=== PATIENT | male | born 1950 | race Caucasian/White ===

== ENCOUNTER 2021-01-14 13:28 | Inpatient (IN) ==
[2021-01-14 13:59] LABS: Basophils % 0.2 % (0.0-0.8); Eosinophils % 0.3 % (0.00-10.9); Hematocrit 24.2 VOL% (42.0-52.0); Hemoglobin 7.2 GM/DL (14.0-18.0); Immature Granulocytes % 0.6 %; Immature Granulocytes Absolute 0.06 #; Lymphocytes # 0.8 10*3/uL (1.4-4.0); Lymphocytes % 8.3 % (21.2-54.2); Mean Corpuscular HGB Conc 29.8 GM/DL (32-36); Mean Corpuscular Volume 88.6 FL (87-102); Mean Platelet Volume 8.8 FL (9.6-12.0); Monocytes % 7.6 % (1.7-12.7); Platelet Count 407 T/CUMM (130-400); Red Blood Count 2.73 MC/CUMM (3.8-5.5); Red Cell Distribution Width 16.7 % (9.3-17.3); White Blood Count 9.8 T/CUMM (4-12)
[2021-01-14 14:20] LABS: Alanine Aminotransferase 18 U/L (16-61); Albumin 2.2 G/DL (3.4-5.0); Alkaline Phosphatase 95 U/L (45-117); Aspartate Amino Transferase 10 U/L (0-37); Bilirubin,Total < 0.39 MG/DL (0.2-1.0); Blood Urea Nitrogen 27 MG/DL (7-18); Carbon Dioxide 26 MMOL/L (21-32); Estimated Glom Filtration Rate 87 ML/MIN; Glucose 134 MG/DL (74-106); Osmolality,Calculated 279.8 MOS/KG (273-304); Potassium 3.9 MMOL/L (3.5-5.1); Sodium 137 MMOL/L (136-145); Total Protein 7.2 G/DL (6.4-8.2)
[2021-01-14] MEDS ORDERED: SODIUM CHLORIDE 0.9% 1,000 ML IV STA (14:23)
[2021-01-14] MEDS ORDERED: SODIUM CHLORIDE 0.9% 1,000 ML IV PRN ×2 (15:14→15:35)
[2021-01-14 15:23] LABS: Alanine Aminotransferase 15 U/L (16-61); Albumin 2.2 G/DL (3.4-5.0); Alkaline Phosphatase 99 U/L (45-117); Aspartate Amino Transferase 11 U/L (0-37); Bilirubin,Total < 0.39 MG/DL (0.2-1.0); Blood Urea Nitrogen 27 MG/DL (7-18); Calcium 9.1 MG/DL (8.5-10.1); Carbon Dioxide 24 MMOL/L (21-32); Estimated Glom Filtration Rate 99 ML/MIN; Glucose 130 MG/DL (74-106); Osmolality,Calculated 276.1 MOS/KG (273-304); Potassium 3.9 MMOL/L (3.5-5.1); Sodium 135 MMOL/L (136-145); Total Protein 7.4 G/DL (6.4-8.2)
[2021-01-14] MEDS ORDERED: ACETAMINOPHEN 325 MG TABLET PO PRN (15:29)
[2021-01-14] MEDS ORDERED: DEXTROSE 50% 25 GM/50 ML VIAL IV PRN ×2 (15:29)
[2021-01-14] MEDS ORDERED: GLUCAGON 1 MG VIAL IM PRN ×2 (15:29)
[2021-01-14] MEDS ORDERED: INSULIN REGULAR 100 UNIT/ML SUBCUT SCH (16:30)
[2021-01-14] MEDS: oxyCODONE/ACETAMINOPHEN 5-325 MG TABLET PO PRN (19:53)
[2021-01-14] MEDS: FLUTICASONE/SALMETEROL 250-50 DISKUS 14 DOSE INH SCH (21:07)
[2021-01-14] MEDS: SIMVASTATIN 40 MG TABLET PO SCH (21:07)
[2021-01-14] MEDS: MONTELUKAST 10 MG TABLET PO SCH (21:07)
[2021-01-15] MEDS: oxyCODONE/ACETAMINOPHEN 5-325 MG TABLET PO PRN (04:14)
[2021-01-15 05:53] LABS: Basophils % 0.3 % (0.0-0.8); Eosinophils # 0.1 10*3/uL (0.0-0.87); Eosinophils % 1.3 % (0.00-10.9); Hematocrit 23.7 VOL% (42.0-52.0); Hemoglobin 7.3 GM/DL (14.0-18.0); Immature Granulocytes % 0.4 %; Immature Granulocytes Absolute 0.03 #; Lymphocytes % 12.2 % (21.2-54.2); Mean Corpuscular HGB Conc 30.8 GM/DL (32-36); Mean Corpuscular Volume 87.1 FL (87-102); Mean Platelet Volume 9.2 FL (9.6-12.0); Monocytes % 10.8 % (1.7-12.7); Platelet Count 320 T/CUMM (130-400); Red Blood Count 2.72 MC/CUMM (3.8-5.5); Red Cell Distribution Width 17.7 % (9.3-17.3)
[2021-01-15 06:17] LABS: Albumin 1.7 G/DL (3.4-5.0); Bilirubin,Total 0.8 MG/DL (0.2-1.0); Calcium 8.5 MG/DL (8.5-10.1); Osmolality,Calculated 277.7 MOS/KG (273-304); Potassium 4.1 MMOL/L (3.5-5.1); Total Protein 5.9 G/DL (6.4-8.2)
[2021-01-15] MEDS ORDERED: SODIUM CHLORIDE 0.9% 1,000 ML IV PRN (08:23)
[2021-01-15] MEDS ORDERED: NON-FORMULARY MEDICATION (Turmeric 400 mg Capsule) PO SCH (09:00)
[2021-01-15 09:49] LABS: INR 1.2; Partial Thromboplastin Time 27.3 SECS (23.9-33.8)
[2021-01-15] MEDS: GABAPENTIN 100 MG CAPSULE PO SCH (12:08)
[2021-01-15] MEDS: COENZYME Q10 100 MG CAPSULE PO SCH (12:08)
[2021-01-15] MEDS: ASCORBIC ACID 500 MG TABLET PO SCH (12:09)
[2021-01-15] MEDS: FLUTICASONE/SALMETEROL 250-50 DISKUS 14 DOSE INH SCH ×2 (12:24→22:03)
[2021-01-15] MEDS: HYDROmorphone 2 MG/1 ML VIAL IV PRN ×3 (15:11→23:34)
[2021-01-15 15:23] LABS: Hematocrit 26.6 VOL% (42.0-52.0); Hemoglobin 8.1 GM/DL (14.0-18.0)
[2021-01-15] MEDS ORDERED: VANCOMYCIN INJ 1,750 MG in SODIUM CHLORIDE 0.9% 500 ML IV ONE (16:00)
[2021-01-15] MEDS ORDERED: VANCOMYCIN INJ 2,000 MG in SODIUM CHLORIDE 0.9% 500 ML IV ONE (17:00)
[2021-01-15 19:43] LABS: Hematocrit 24.8 VOL% (42.0-52.0); Hemoglobin 7.8 GM/DL (14.0-18.0)
[2021-01-15 19:48] LABS: Bilirubin,Urine Negative (Negative); Blood, Urine Moderate mg/dL (Negative); Glucose,Urine (UA) Negative (Negative); Ketones,Urine Negative (Negative); Mucus,Urine Occasional /LPF (Occasional); Nitrite,Urine Negative (Negative); Protein,Urine Negative; RBC,Urine 53 /HPF (0-4); Squamous Epithelial Cell,Urine Occasional /HPF (0-10); Urine Appearance CLEAR (Clear); Urine Color Yellow (Yellow); Urine Specific Gravity 1.045 (1.001-1.035); Urine Urobilinogen < 2.0 EU/DL (0.2-1.0); WBC,Urine 16 /HPF (0-6)
[2021-01-15] MEDS: PIPERACILLIN/TAZOBACTAM 3,375 MG in SODIUM CHLORIDE 0.9% 100 ML IV SCH (22:01)
[2021-01-15] MEDS: SIMVASTATIN 40 MG TABLET PO SCH (22:02)
[2021-01-15] MEDS: MONTELUKAST 10 MG TABLET PO SCH (22:02)
[2021-01-15 23:29] LABS: Hematocrit 24.1 VOL% (42.0-52.0); Hemoglobin 7.6 GM/DL (14.0-18.0)
[2021-01-16] MEDS: HYDROmorphone 2 MG/1 ML VIAL IV PRN ×4 (04:05→11:05)
[2021-01-16] MEDS: PIPERACILLIN/TAZOBACTAM 3,375 MG in SODIUM CHLORIDE 0.9% 100 ML IV SCH ×2 (05:56→19:15)
[2021-01-16] MEDS: VANCOMYCIN INJ 1,250 MG in SODIUM CHLORIDE 0.9% 250 ML IV SCH ×2 (06:17→17:58)
[2021-01-16 06:58] LABS: Basophils % 0.2 % (0.0-0.8); Eosinophils % 0.5 % (0.00-10.9); Hematocrit 26.7 VOL% (42.0-52.0); Hemoglobin 8.5 GM/DL (14.0-18.0); Immature Granulocytes % 0.5 %; Immature Granulocytes Absolute 0.04 #; Lymphocytes % 12.1 % (21.2-54.2); Mean Corpuscular HGB Conc 31.8 GM/DL (32-36); Mean Corpuscular Volume 86.1 FL (87-102); Mean Platelet Volume 8.9 FL (9.6-12.0); Monocytes % 12.3 % (1.7-12.7); Neutrophils % 74.4 % (38.7-73.9); Platelet Count 316 T/CUMM (130-400); Red Cell Distribution Width 16.2 % (9.3-17.3); White Blood Count 8.3 T/CUMM (4-12)
[2021-01-16 07:20] LABS: Calcium 8.6 MG/DL (8.5-10.1); Potassium 3.8 MMOL/L (3.5-5.1)
[2021-01-16] MEDS ORDERED: LACTATED RINGERS 1,000 ML IV SCH (08:00)
[2021-01-16] MEDS ORDERED: MIDAZOLAM 2 MG/2 ML VIAL ONE (08:31)
[2021-01-16] MEDS ORDERED: ONDANSETRON 4 MG/2 ML VIAL ONE ×2 (08:31→10:54)
[2021-01-16] MEDS ORDERED: propofoL 200 MG/20 ML VIAL IV ONE (08:31)
[2021-01-16] MEDS ORDERED: fentaNYL 100 MCG/2 ML VIAL ONE (08:31)
[2021-01-16] MEDS ORDERED: LIDOCAINE 2% 5 ML VIAL ONE (08:31)
[2021-01-16] MEDS ORDERED: SEVOFLURANE 1 UNIT/15 MINUTE INH ONE ×3 (08:31→10:03)
[2021-01-16] MEDS ORDERED: BUPIVACAINE MPF 0.25% 30 ML VIAL ONE (08:40)
[2021-01-16] MEDS ORDERED: LIDOCAINE 1%/EPI INJ 20 ML VIAL ONE (08:40)
[2021-01-16] MEDS ORDERED: DEXAMETHASONE 4 MG/1 ML VIAL ONE (10:03)
[2021-01-16] MEDS ORDERED: ONDANSETRON 4 MG/2 ML VIAL IV PRN (10:56)
[2021-01-16] MEDS: FLUTICASONE/SALMETEROL 250-50 DISKUS 14 DOSE INH SCH ×2 (14:02→21:04)
[2021-01-16] MEDS: COENZYME Q10 100 MG CAPSULE PO SCH (14:03)
[2021-01-16] MEDS: ASCORBIC ACID 500 MG TABLET PO SCH (14:04)
[2021-01-16] MEDS: GABAPENTIN 100 MG CAPSULE PO SCH (14:04)
[2021-01-16] MEDS: oxyCODONE/ACETAMINOPHEN 5-325 MG TABLET PO PRN ×2 (14:05→20:58)
[2021-01-16] MEDS: MONTELUKAST 10 MG TABLET PO SCH (20:58)
[2021-01-16] MEDS: SIMVASTATIN 40 MG TABLET PO SCH (20:58)
[2021-01-17] MEDS: PIPERACILLIN/TAZOBACTAM 3,375 MG in SODIUM CHLORIDE 0.9% 100 ML IV SCH ×3 (02:01→19:32)
[2021-01-17] MEDS: oxyCODONE/ACETAMINOPHEN 5-325 MG TABLET PO PRN ×4 (04:06→23:25)
[2021-01-17] MEDS: VANCOMYCIN INJ 1,250 MG in SODIUM CHLORIDE 0.9% 250 ML IV SCH ×2 (06:07→17:20)
[2021-01-17] MEDS: COENZYME Q10 100 MG CAPSULE PO SCH ×2 (09:18→09:55)
[2021-01-17] MEDS: ASCORBIC ACID 500 MG TABLET PO SCH (09:55)
[2021-01-17] MEDS: GABAPENTIN 100 MG CAPSULE PO SCH (09:55)
[2021-01-17] MEDS: FLUTICASONE/SALMETEROL 250-50 DISKUS 14 DOSE INH SCH ×2 (09:56→22:20)
[2021-01-17] MEDS: SODIUM HYPOCHLORITE 0.25% IRRIG 473 ML BOTTLE TOP SCH (17:30)
[2021-01-17] MEDS ORDERED: LOPERAMIDE 2 MG CAPSULE PO PRN ×2 (21:43)
[2021-01-17] MEDS ORDERED: MYLANTA/LIDO VISC 2:1 300 ML BOTTLE SWISH/SWAL PRN (21:43)
[2021-01-17] MEDS ORDERED: MYLANTA/LIDO VISC 2:1 300 ML BOTTLE SWISH/SPIT PRN (21:43)
[2021-01-17] MEDS ORDERED: guaiFENesin 200 MG/10 ML UDCUP PO PRN (21:43)
[2021-01-17] MEDS ORDERED: TEMAZEPAM 7.5 MG CAPSULE PO PRN (21:43)
[2021-01-17] MEDS ORDERED: LACTULOSE 20 GM/30 ML UDCUP PO PRN (21:43)
[2021-01-17] MEDS ORDERED: chlorproMAZINE 25 MG TABLET PO PRN (21:43)
[2021-01-17] MEDS ORDERED: ALUMINUM/MAGNES/SIMETH MAX STR 30 ML UDCUP PO PRN (21:43)
[2021-01-17] MEDS ORDERED: MAGNESIUM HYDROXIDE SUSP 30 ML UDCUP PO PRN (21:43)
[2021-01-17] MEDS ORDERED: BENZTROPINE 2 MG/2 ML AMP IV PRN (21:43)
[2021-01-17] MEDS: SIMVASTATIN 40 MG TABLET PO SCH (22:13)
[2021-01-17] MEDS: MONTELUKAST 10 MG TABLET PO SCH (22:13)
[2021-01-17] MEDS: ALPRAZolam 0.25 MG TABLET PO PRN (22:15)
[2021-01-18] MEDS: PIPERACILLIN/TAZOBACTAM 3,375 MG in SODIUM CHLORIDE 0.9% 100 ML IV SCH ×3 (02:17→19:45)
[2021-01-18] MEDS: oxyCODONE/ACETAMINOPHEN 5-325 MG TABLET PO PRN ×4 (04:00→23:33)
[2021-01-18 05:21] LABS: Basophils % 0.2 % (0.0-0.8); Eosinophils # 0.1 10*3/uL (0.0-0.87); Eosinophils % 0.9 % (0.00-10.9); Hematocrit 28.1 VOL% (42.0-52.0); Hemoglobin 8.5 GM/DL (14.0-18.0); Immature Granulocytes Absolute 0.08 #; Lymphocytes % 12.2 % (21.2-54.2); Mean Corpuscular HGB Conc 30.2 GM/DL (32-36); Mean Corpuscular Volume 88.4 FL (87-102); Mean Platelet Volume 9.1 FL (9.6-12.0); Monocytes % 7.2 % (1.7-12.7); Neutrophils % 78.5 % (38.7-73.9); Platelet Count 345 T/CUMM (130-400); Red Blood Count 3.18 MC/CUMM (3.8-5.5); Red Cell Distribution Width 16.5 % (9.3-17.3); White Blood Count 8.2 T/CUMM (4-12)
[2021-01-18 05:33] LABS: Calcium 8.5 MG/DL (8.5-10.1); Osmolality,Calculated 279.4 MOS/KG (273-304); Potassium 3.8 MMOL/L (3.5-5.1)
[2021-01-18] MEDS: VANCOMYCIN INJ 1,000 MG in SODIUM CHLORIDE 0.9% 250 ML IV SCH ×2 (06:17→17:55)
[2021-01-18] MEDS: HYDROmorphone 2 MG/1 ML VIAL IV PRN ×2 (07:18→19:35)
[2021-01-18] MEDS: GABAPENTIN 100 MG CAPSULE PO SCH (08:51)
[2021-01-18] MEDS: SODIUM HYPOCHLORITE 0.25% IRRIG 473 ML BOTTLE TOP SCH (08:52)
[2021-01-18] MEDS: ALPRAZolam 0.25 MG TABLET PO PRN (08:52)
[2021-01-18] MEDS: FLUTICASONE/SALMETEROL 250-50 DISKUS 14 DOSE INH SCH ×2 (08:52→20:25)
[2021-01-18] MEDS: COENZYME Q10 100 MG CAPSULE PO SCH (08:52)
[2021-01-18] MEDS: ASCORBIC ACID 500 MG TABLET PO SCH (08:52)
[2021-01-18 10:57] LABS: Basophils % 0.2 % (0.0-0.8); Eosinophils # 0.1 10*3/uL (0.0-0.87); Eosinophils % 1.5 % (0.00-10.9); Hematocrit 28.4 VOL% (42.0-52.0); Hemoglobin 8.7 GM/DL (14.0-18.0); Immature Granulocytes % 0.7 %; Immature Granulocytes Absolute 0.06 #; Lymphocytes % 12.5 % (21.2-54.2); Mean Corpuscular HGB Conc 30.6 GM/DL (32-36); Mean Corpuscular Volume 90.2 FL (87-102); Mean Platelet Volume 8.7 FL (9.6-12.0); Monocytes % 6.7 % (1.7-12.7); Neutrophils % 78.4 % (38.7-73.9); Platelet Count 324 T/CUMM (130-400); Red Blood Count 3.15 MC/CUMM (3.8-5.5); Red Cell Distribution Width 16.8 % (9.3-17.3); White Blood Count 8.2 T/CUMM (4-12)
[2021-01-18] MEDS ORDERED: ACETAMINOPHEN 325 MG TABLET PO ONE (15:21)
[2021-01-18 16:01] LABS: Hematocrit 28.3 VOL% (42.0-52.0); Hemoglobin 8.8 GM/DL (14.0-18.0)
[2021-01-18 16:25] LABS: Calcium 8.5 MG/DL (8.5-10.1); Osmolality,Calculated 277.5 MOS/KG (273-304); Potassium 3.6 MMOL/L (3.5-5.1)
[2021-01-18] MEDS: SIMVASTATIN 40 MG TABLET PO SCH (20:23)
[2021-01-18] MEDS: MONTELUKAST 10 MG TABLET PO SCH (20:23)
[2021-01-19] MEDS: PIPERACILLIN/TAZOBACTAM 3,375 MG in SODIUM CHLORIDE 0.9% 100 ML IV SCH ×3 (02:18→21:01)
[2021-01-19] MEDS: HYDROmorphone 2 MG/1 ML VIAL IV PRN ×8 (02:26→20:58)
[2021-01-19 03:59] LABS: Basophils % 0.2 % (0.0-0.8); Eosinophils # 0.2 10*3/uL (0.0-0.87); Eosinophils % 2.8 % (0.00-10.9); Hematocrit 26.8 VOL% (42.0-52.0); Immature Granulocytes Absolute 0.06 #; Lymphocytes # 0.7 10*3/uL (1.4-4.0); Lymphocytes % 11.6 % (21.2-54.2); Mean Corpuscular HGB Conc 29.9 GM/DL (32-36); Mean Corpuscular Volume 89.9 FL (87-102); Mean Platelet Volume 8.7 FL (9.6-12.0); Monocytes % 10.7 % (1.7-12.7); Neutrophils % 73.7 % (38.7-73.9); Platelet Count 285 T/CUMM (130-400); Red Blood Count 2.98 MC/CUMM (3.8-5.5); Red Cell Distribution Width 16.8 % (9.3-17.3); White Blood Count 5.8 T/CUMM (4-12)
[2021-01-19 04:17] LABS: Calcium 8.5 MG/DL (8.5-10.1); Osmolality,Calculated 278.4 MOS/KG (273-304)
[2021-01-19 04:22] LABS: Potassium 4.4 MMOL/L (3.5-5.1)
[2021-01-19 04:26] LABS: Atypical Lymphocytes Few; Band Neutrophils 4 % (0-10); Eosinophils 2 % (0-10); Hypochromasia 1+; Lymphocytes 8 % (20-55); Microcytosis 1+; Segmented Neutrophils 74 % (50-85); Total Cells Counted 100
[2021-01-19] MEDS: oxyCODONE/ACETAMINOPHEN 5-325 MG TABLET PO PRN ×2 (05:35→18:10)
[2021-01-19] MEDS: VANCOMYCIN INJ 1,000 MG in SODIUM CHLORIDE 0.9% 250 ML IV SCH (06:19)
[2021-01-19] MEDS: SODIUM HYPOCHLORITE 0.25% IRRIG 473 ML BOTTLE TOP SCH ×2 (08:30→08:38)
[2021-01-19] MEDS: ASCORBIC ACID 500 MG TABLET PO SCH (08:38)
[2021-01-19] MEDS: FLUTICASONE/SALMETEROL 250-50 DISKUS 14 DOSE INH SCH ×2 (08:38→21:05)
[2021-01-19] MEDS: COENZYME Q10 100 MG CAPSULE PO SCH (08:38)
[2021-01-19] MEDS ORDERED: LACTATED RINGERS 1,000 ML IV SCH (09:00)
[2021-01-19] MEDS ORDERED: ALBUMIN 5% 12.5 GM/250 ML VIAL IV ONE (09:01)
[2021-01-19] MEDS ORDERED: SEVOFLURANE 1 UNIT/15 MINUTE INH ONE (09:24)
[2021-01-19] MEDS ORDERED: propofoL 200 MG/20 ML VIAL IV ONE (09:24)
[2021-01-19] MEDS ORDERED: LIDOCAINE 2% 5 ML VIAL ONE (09:24)
[2021-01-19] MEDS ORDERED: MIDAZOLAM 2 MG/2 ML VIAL ONE (09:24)
[2021-01-19] MEDS ORDERED: fentaNYL 100 MCG/2 ML VIAL ONE (09:25)
[2021-01-19] MEDS ORDERED: ePHEDrine 50 MG/ML VIAL ONE (09:37)
[2021-01-19] MEDS ORDERED: ONDANSETRON 4 MG/2 ML VIAL ONE ×2 (09:58→10:26)
[2021-01-19] MEDS ORDERED: ONDANSETRON 4 MG/2 ML VIAL IV PRN (10:24)
[2021-01-19] MEDS: GABAPENTIN 100 MG CAPSULE PO SCH (14:32)
[2021-01-19] MEDS: SODIUM HYPOCHLORITE 0.25% IRR 1 APPLIC in IV BAG 1 EACH IRRIG PRN (19:04)
[2021-01-19] MEDS: SIMVASTATIN 40 MG TABLET PO SCH (20:59)
[2021-01-19] MEDS: MONTELUKAST 10 MG TABLET PO SCH (20:59)
[2021-01-20] MEDS: oxyCODONE/ACETAMINOPHEN 5-325 MG TABLET PO PRN ×3 (00:02→15:52)
[2021-01-20] MEDS: HYDROmorphone 2 MG/1 ML VIAL IV PRN ×4 (02:06→21:01)
[2021-01-20] MEDS: PIPERACILLIN/TAZOBACTAM 3,375 MG in SODIUM CHLORIDE 0.9% 100 ML IV SCH ×3 (04:59→21:01)
[2021-01-20 06:22] LABS: Basophils % 0.2 % (0.0-0.8); Eosinophils # 0.1 10*3/uL (0.0-0.87); Eosinophils % 2.8 % (0.00-10.9); Hematocrit 28.1 VOL% (42.0-52.0); Hemoglobin 8.6 GM/DL (14.0-18.0); Immature Granulocytes Absolute 0.05 #; Lymphocytes # 0.7 10*3/uL (1.4-4.0); Lymphocytes % 13.7 % (21.2-54.2); Mean Corpuscular HGB Conc 30.6 GM/DL (32-36); Mean Corpuscular Volume 88.4 FL (87-102); Mean Platelet Volume 8.7 FL (9.6-12.0); Monocytes % 10.9 % (1.7-12.7); Neutrophils % 71.4 % (38.7-73.9); Platelet Count 295 T/CUMM (130-400); Red Blood Count 3.18 MC/CUMM (3.8-5.5); Red Cell Distribution Width 16.4 % (9.3-17.3)
[2021-01-20 06:44] LABS: Hypochromasia 1+; Microcytosis 1+; Platelet Estimate Adequate
[2021-01-20 06:51] LABS: Calcium 8.8 MG/DL (8.5-10.1); Osmolality,Calculated 271.8 MOS/KG (273-304)
[2021-01-20] MEDS: FLUTICASONE/SALMETEROL 250-50 DISKUS 14 DOSE INH SCH ×2 (08:10→21:02)
[2021-01-20] MEDS: GABAPENTIN 100 MG CAPSULE PO SCH (08:11)
[2021-01-20] MEDS: ASCORBIC ACID 500 MG TABLET PO SCH (08:11)
[2021-01-20] MEDS: COENZYME Q10 100 MG CAPSULE PO SCH (08:11)
[2021-01-20] MEDS: SODIUM HYPOCHLORITE 0.25% IRRIG 473 ML BOTTLE TOP SCH (08:12)
[2021-01-20] MEDS: MONTELUKAST 10 MG TABLET PO SCH (21:02)
[2021-01-20] MEDS: SIMVASTATIN 40 MG TABLET PO SCH (21:02)
[2021-01-21] MEDS: oxyCODONE/ACETAMINOPHEN 5-325 MG TABLET PO PRN ×2 (00:09→09:34)
[2021-01-21] MEDS: PIPERACILLIN/TAZOBACTAM 3,375 MG in SODIUM CHLORIDE 0.9% 100 ML IV SCH ×3 (05:13→21:23)
[2021-01-21] MEDS: HYDROmorphone 2 MG/1 ML VIAL IV PRN ×3 (05:14→21:45)
[2021-01-21 05:52] LABS: Basophils % 0.2 % (0.0-0.8); Eosinophils # 0.2 10*3/uL (0.0-0.87); Eosinophils % 2.9 % (0.00-10.9); Hematocrit 29.7 VOL% (42.0-52.0); Hemoglobin 9.1 GM/DL (14.0-18.0); Immature Granulocytes % 1.2 %; Immature Granulocytes Absolute 0.07 #; Lymphocytes # 0.9 10*3/uL (1.4-4.0); Lymphocytes % 15.9 % (21.2-54.2); Mean Corpuscular HGB Conc 30.6 GM/DL (32-36); Mean Corpuscular Volume 88.4 FL (87-102); Monocytes % 9.9 % (1.7-12.7); Neutrophils % 69.9 % (38.7-73.9); Platelet Count 307 T/CUMM (130-400); Red Blood Count 3.36 MC/CUMM (3.8-5.5); Red Cell Distribution Width 16.5 % (9.3-17.3); White Blood Count 5.8 T/CUMM (4-12)
[2021-01-21 06:05] LABS: Calcium 8.8 MG/DL (8.5-10.1); Osmolality,Calculated 272.8 MOS/KG (273-304)
[2021-01-21 06:34] LABS: Band Neutrophils 3 % (0-10); Eosinophils 6 % (0-10); Hypochromasia 1+; Lymphocytes 16 % (20-55); Segmented Neutrophils 68 % (50-85); Total Cells Counted 100
[2021-01-21 06:35] LABS: Microcytosis 1+; Polychromasia Slight
[2021-01-21] MEDS: ASCORBIC ACID 500 MG TABLET PO SCH (09:34)
[2021-01-21] MEDS: COENZYME Q10 100 MG CAPSULE PO SCH (09:34)
[2021-01-21] MEDS: GABAPENTIN 100 MG CAPSULE PO SCH (09:34)
[2021-01-21] MEDS: SODIUM HYPOCHLORITE 0.25% IRRIG 473 ML BOTTLE TOP SCH (09:34)
[2021-01-21] MEDS: FLUTICASONE/SALMETEROL 250-50 DISKUS 14 DOSE INH SCH ×2 (09:34→21:23)
[2021-01-21] MEDS: SIMVASTATIN 40 MG TABLET PO SCH (21:22)
[2021-01-21] MEDS: MONTELUKAST 10 MG TABLET PO SCH (21:22)
[2021-01-22] MEDS: HYDROmorphone 2 MG/1 ML VIAL IV PRN ×4 (03:59→19:39)
[2021-01-22] MEDS: PIPERACILLIN/TAZOBACTAM 3,375 MG in SODIUM CHLORIDE 0.9% 100 ML IV SCH ×3 (04:03→19:38)
[2021-01-22] MEDS: ASCORBIC ACID 500 MG TABLET PO SCH ×2 (09:26→09:34)
[2021-01-22] MEDS: GABAPENTIN 100 MG CAPSULE PO SCH ×2 (09:26→09:34)
[2021-01-22] MEDS: COENZYME Q10 100 MG CAPSULE PO SCH ×2 (09:26→09:34)
[2021-01-22] MEDS: oxyCODONE/ACETAMINOPHEN 5-325 MG TABLET PO PRN ×2 (09:26→23:14)
[2021-01-22] MEDS: FLUTICASONE/SALMETEROL 250-50 DISKUS 14 DOSE INH SCH ×3 (09:27→21:18)
[2021-01-22] MEDS: SODIUM HYPOCHLORITE 0.25% IRRIG 473 ML BOTTLE TOP SCH (09:27)
[2021-01-22] MEDS ORDERED: ONDANSETRON 4 MG/2 ML VIAL ONE (09:45)
[2021-01-22] MEDS ORDERED: LIDOCAINE 2% 5 ML VIAL ONE (09:45)
[2021-01-22] MEDS ORDERED: PHENYLEPHRINE 1 MG/10 ML SYRINGE IV ONE (09:45)
[2021-01-22] MEDS ORDERED: SEVOFLURANE 1 UNIT/15 MINUTE INH ONE (09:45)
[2021-01-22] MEDS ORDERED: propofoL 200 MG/20 ML VIAL IV ONE (09:45)
[2021-01-22] MEDS ORDERED: fentaNYL 100 MCG/2 ML VIAL ONE (09:46)
[2021-01-22] MEDS ORDERED: MIDAZOLAM 2 MG/2 ML VIAL ONE (09:46)
[2021-01-22] MEDS ORDERED: LACTATED RINGERS 1,000 ML IV SCH (10:30)
[2021-01-22] MEDS ORDERED: ACETAMINOPHEN INJ 1,000 MG/100 ML VIAL IV ONE (10:49)
[2021-01-22] MEDS: CHOLECALCIFEROL 1,000 UNIT TABLET PO SCH (13:13)
[2021-01-22] MEDS: MONTELUKAST 10 MG TABLET PO SCH ×2 (19:39→21:18)
[2021-01-22] MEDS: SIMVASTATIN 40 MG TABLET PO SCH ×2 (19:39→21:18)
[2021-01-23] MEDS: HYDROmorphone 2 MG/1 ML VIAL IV PRN ×5 (05:22→17:17)
[2021-01-23 06:22] LABS: Basophils % 0.2 % (0.0-0.8); Eosinophils # 0.2 10*3/uL (0.0-0.87); Eosinophils % 3.4 % (0.00-10.9); Hematocrit 32.1 VOL% (42.0-52.0); Hemoglobin 9.5 GM/DL (14.0-18.0); Immature Granulocytes % 1.1 %; Immature Granulocytes Absolute 0.05 #; Lymphocytes # 0.9 10*3/uL (1.4-4.0); Lymphocytes % 18.1 % (21.2-54.2); Mean Corpuscular HGB Conc 29.6 GM/DL (32-36); Mean Corpuscular Volume 90.7 FL (87-102); Mean Platelet Volume 8.9 FL (9.6-12.0); Monocytes % 12.4 % (1.7-12.7); Neutrophils % 64.8 % (38.7-73.9); Platelet Count 345 T/CUMM (130-400); Red Blood Count 3.54 MC/CUMM (3.8-5.5); Red Cell Distribution Width 16.5 % (9.3-17.3); White Blood Count 4.8 T/CUMM (4-12)
[2021-01-23 06:35] LABS: Osmolality,Calculated 273.7 MOS/KG (273-304); Potassium 4.1 MMOL/L (3.5-5.1)
[2021-01-23 06:43] LABS: Hypochromasia 1+; Microcytosis 1+
[2021-01-23 06:44] LABS: Platelet Estimate Normal
[2021-01-23] MEDS: GABAPENTIN 100 MG CAPSULE PO SCH (10:02)
[2021-01-23] MEDS: SODIUM HYPOCHLORITE 0.25% IRRIG 473 ML BOTTLE TOP SCH (10:02)
[2021-01-23] MEDS: CHOLECALCIFEROL 1,000 UNIT TABLET PO SCH (10:02)
[2021-01-23] MEDS: ASCORBIC ACID 500 MG TABLET PO SCH (10:02)
[2021-01-23] MEDS: COENZYME Q10 100 MG CAPSULE PO SCH (10:02)
[2021-01-23] MEDS: FLUTICASONE/SALMETEROL 250-50 DISKUS 14 DOSE INH SCH ×2 (10:03→20:36)
[2021-01-23] MEDS ORDERED: POLYETHYLENE GLYCOL POWDER 17 GM PACK PO PRN (11:46)
[2021-01-23] MEDS: MONTELUKAST 10 MG TABLET PO SCH (20:35)
[2021-01-23] MEDS: SIMVASTATIN 40 MG TABLET PO SCH (20:35)
[2021-01-23] MEDS: oxyCODONE/ACETAMINOPHEN 5-325 MG TABLET PO PRN (20:36)
[2021-01-24] MEDS: HYDROmorphone 2 MG/1 ML VIAL IV PRN ×5 (00:23→23:38)
[2021-01-24 06:03] LABS: Basophils % 0.2 % (0.0-0.8); Eosinophils # 0.2 10*3/uL (0.0-0.87); Eosinophils % 5.4 % (0.00-10.9); Hemoglobin 9.1 GM/DL (14.0-18.0); Immature Granulocytes % 1.4 %; Immature Granulocytes Absolute 0.06 #; Lymphocytes # 1.6 10*3/uL (1.4-4.0); Lymphocytes % 36.1 % (21.2-54.2); Mean Corpuscular HGB Conc 29.4 GM/DL (32-36); Mean Corpuscular Volume 92.5 FL (87-102); Mean Platelet Volume 8.5 FL (9.6-12.0); Monocytes % 13.3 % (1.7-12.7); Neutrophils % 43.6 % (38.7-73.9); Platelet Count 314 T/CUMM (130-400); Red Blood Count 3.35 MC/CUMM (3.8-5.5); Red Cell Distribution Width 16.5 % (9.3-17.3); White Blood Count 4.4 T/CUMM (4-12)
[2021-01-24 06:27] LABS: Eosinophils 1 % (0-10); Hypochromasia 1+; Lymphocytes 43 % (20-55); Microcytosis 1+; Platelet Estimate Adequate; Segmented Neutrophils 47 % (50-85); Total Cells Counted 100
[2021-01-24 06:28] LABS: Atypical Lymphocytes Few
[2021-01-24 06:29] LABS: Calcium 8.7 MG/DL (8.5-10.1); Osmolality,Calculated 273.8 MOS/KG (273-304); Potassium 4.3 MMOL/L (3.5-5.1)
[2021-01-24] MEDS: CHOLECALCIFEROL 1,000 UNIT TABLET PO SCH (08:59)
[2021-01-24] MEDS: oxyCODONE/ACETAMINOPHEN 5-325 MG TABLET PO PRN (08:59)
[2021-01-24] MEDS: SODIUM HYPOCHLORITE 0.25% IRRIG 473 ML BOTTLE TOP SCH (09:00)
[2021-01-24] MEDS: FLUTICASONE/SALMETEROL 250-50 DISKUS 14 DOSE INH SCH ×2 (09:00→20:35)
[2021-01-24] MEDS: ASCORBIC ACID 500 MG TABLET PO SCH (09:00)
[2021-01-24] MEDS: GABAPENTIN 100 MG CAPSULE PO SCH (09:00)
[2021-01-24] MEDS: COENZYME Q10 100 MG CAPSULE PO SCH (09:00)
[2021-01-24] MEDS: diphenhydrAMINE CAP 25 MG CAPSULE PO PRN (11:12)
[2021-01-24] MEDS: diphenhydrAMINE 2% CREAM 28 GM TUBE TOP PRN (12:20)
[2021-01-24] MEDS: MONTELUKAST 10 MG TABLET PO SCH (20:35)
[2021-01-24] MEDS: SIMVASTATIN 40 MG TABLET PO SCH (20:35)
[2021-01-25] MEDS: HYDROmorphone 2 MG/1 ML VIAL IV PRN ×6 (04:05→23:04)
[2021-01-25] MEDS: diphenhydrAMINE CAP 25 MG CAPSULE PO PRN ×3 (05:09→23:59)
[2021-01-25 05:11] LABS: Basophils % 0.4 % (0.0-0.8); Eosinophils # 0.2 10*3/uL (0.0-0.87); Eosinophils % 3.4 % (0.00-10.9); Hemoglobin 9.3 GM/DL (14.0-18.0); Immature Granulocytes % 0.9 %; Immature Granulocytes Absolute 0.04 #; Lymphocytes # 1.5 10*3/uL (1.4-4.0); Lymphocytes % 33.1 % (21.2-54.2); Mean Corpuscular Volume 88.5 FL (87-102); Monocytes % 10.3 % (1.7-12.7); Neutrophils % 51.9 % (38.7-73.9); Platelet Count 348 T/CUMM (130-400); Red Blood Count 3.39 MC/CUMM (3.8-5.5); Red Cell Distribution Width 16.6 % (9.3-17.3); White Blood Count 4.5 T/CUMM (4-12)
[2021-01-25] MEDS: diphenhydrAMINE 2% CREAM 28 GM TUBE TOP PRN (05:11)
[2021-01-25 05:24] LABS: Osmolality,Calculated 275.7 MOS/KG (273-304); Potassium 4.3 MMOL/L (3.5-5.1)
[2021-01-25 05:45] LABS: Hypochromasia 1+; Microcytosis 1+; Platelet Estimate Adequate
[2021-01-25] MEDS: CHOLECALCIFEROL 1,000 UNIT TABLET PO SCH (09:07)
[2021-01-25] MEDS: GABAPENTIN 100 MG CAPSULE PO SCH (09:07)
[2021-01-25] MEDS: ASCORBIC ACID 500 MG TABLET PO SCH (09:07)
[2021-01-25] MEDS: COENZYME Q10 100 MG CAPSULE PO SCH (09:07)
[2021-01-25] MEDS: FLUTICASONE/SALMETEROL 250-50 DISKUS 14 DOSE INH SCH ×2 (09:08→20:34)
[2021-01-25] MEDS: SODIUM HYPOCHLORITE 0.25% IRRIG 473 ML BOTTLE TOP SCH (09:08)
[2021-01-25] MEDS: oxyCODONE/ACETAMINOPHEN 5-325 MG TABLET PO PRN (11:15)
[2021-01-25] MEDS: MONTELUKAST 10 MG TABLET PO SCH (20:36)
[2021-01-25] MEDS: SIMVASTATIN 40 MG TABLET PO SCH (20:36)
[2021-01-26] MEDS: HYDROmorphone 2 MG/1 ML VIAL IV PRN ×9 (04:03→23:51)
[2021-01-26 05:16] LABS: Basophils % 0.4 % (0.0-0.8); Eosinophils # 0.1 10*3/uL (0.0-0.87); Eosinophils % 2.9 % (0.00-10.9); Hematocrit 30.7 VOL% (42.0-52.0); Hemoglobin 9.3 GM/DL (14.0-18.0); Immature Granulocytes Absolute 0.05 #; Lymphocytes # 1.5 10*3/uL (1.4-4.0); Lymphocytes % 31.1 % (21.2-54.2); Mean Corpuscular HGB Conc 30.3 GM/DL (32-36); Mean Platelet Volume 8.8 FL (9.6-12.0); Monocytes % 10.9 % (1.7-12.7); Neutrophils % 53.7 % (38.7-73.9); Platelet Count 354 T/CUMM (130-400); Red Blood Count 3.41 MC/CUMM (3.8-5.5); Red Cell Distribution Width 16.6 % (9.3-17.3); White Blood Count 4.9 T/CUMM (4-12)
[2021-01-26 05:33] LABS: Calcium 9.1 MG/DL (8.5-10.1); Potassium 4.1 MMOL/L (3.5-5.1)
[2021-01-26 05:44] LABS: Eosinophils 5 % (0-10); Hypochromasia 1+; Lymphocytes 22 % (20-55); Microcytosis 1+; Platelet Estimate Adequate; Segmented Neutrophils 59 % (50-85); Total Cells Counted 100
[2021-01-26] MEDS: SODIUM HYPOCHLORITE 0.25% IRR 1 APPLIC in IV BAG 1 EACH IRRIG PRN (10:44)
[2021-01-26] MEDS: FLUTICASONE/SALMETEROL 250-50 DISKUS 14 DOSE INH SCH ×3 (10:49→20:55)
[2021-01-26] MEDS: COENZYME Q10 100 MG CAPSULE PO SCH (10:49)
[2021-01-26] MEDS: CHOLECALCIFEROL 1,000 UNIT TABLET PO SCH (10:50)
[2021-01-26] MEDS: ASCORBIC ACID 500 MG TABLET PO SCH (10:50)
[2021-01-26] MEDS: SODIUM HYPOCHLORITE 0.25% IRRIG 473 ML BOTTLE TOP SCH (10:51)
[2021-01-26] MEDS ORDERED: LACTATED RINGERS 1,000 ML IV SCH (12:30)
[2021-01-26] MEDS ORDERED: fentaNYL 100 MCG/2 ML VIAL ONE (12:33)
[2021-01-26] MEDS ORDERED: PHENYLEPHRINE 1 MG/10 ML SYRINGE IV ONE (13:06)
[2021-01-26] MEDS ORDERED: GLYCOPYRROLATE 0.4 MG/2 ML VIAL ONE (13:11)
[2021-01-26] MEDS ORDERED: propofoL 200 MG/20 ML VIAL IV ONE (13:11)
[2021-01-26] MEDS ORDERED: LIDOCAINE 2% 5 ML VIAL ONE (13:11)
[2021-01-26] MEDS ORDERED: SEVOFLURANE 1 UNIT/15 MINUTE INH ONE (13:11)
[2021-01-26] MEDS ORDERED: ONDANSETRON 4 MG/2 ML VIAL ONE (13:11)
[2021-01-26] MEDS: GABAPENTIN 100 MG CAPSULE PO SCH (14:42)
[2021-01-26] MEDS: SIMVASTATIN 40 MG TABLET PO SCH ×2 (19:42→20:55)
[2021-01-26] MEDS: MONTELUKAST 10 MG TABLET PO SCH ×2 (19:42→20:55)
[2021-01-27] MEDS: HYDROmorphone 2 MG/1 ML VIAL IV PRN ×6 (04:18→23:56)
[2021-01-27 05:43] LABS: Basophils % 0.6 % (0.0-0.8); Eosinophils # 0.1 10*3/uL (0.0-0.87); Eosinophils % 2.4 % (0.00-10.9); Hematocrit 30.8 VOL% (42.0-52.0); Hemoglobin 9.4 GM/DL (14.0-18.0); Immature Granulocytes % 0.4 %; Immature Granulocytes Absolute 0.02 #; Lymphocytes # 1.3 10*3/uL (1.4-4.0); Lymphocytes % 28.4 % (21.2-54.2); Mean Corpuscular HGB Conc 30.5 GM/DL (32-36); Mean Corpuscular Volume 88.8 FL (87-102); Monocytes % 12.6 % (1.7-12.7); Neutrophils % 55.6 % (38.7-73.9); Platelet Count 387 T/CUMM (130-400); Red Blood Count 3.47 MC/CUMM (3.8-5.5); Red Cell Distribution Width 16.7 % (9.3-17.3); White Blood Count 4.7 T/CUMM (4-12)
[2021-01-27 05:48] LABS: Calcium 9.4 MG/DL (8.5-10.1); Osmolality,Calculated 280.4 MOS/KG (273-304)
[2021-01-27 06:31] LABS: Hypochromasia 1+; Microcytosis 1+; Platelet Estimate Adequate
[2021-01-27] MEDS: CHOLECALCIFEROL 1,000 UNIT TABLET PO SCH (09:13)
[2021-01-27] MEDS: ASCORBIC ACID 500 MG TABLET PO SCH (09:13)
[2021-01-27] MEDS: SODIUM HYPOCHLORITE 0.25% IRRIG 473 ML BOTTLE TOP SCH (09:13)
[2021-01-27] MEDS: GABAPENTIN 100 MG CAPSULE PO SCH (09:13)
[2021-01-27] MEDS: COENZYME Q10 100 MG CAPSULE PO SCH (09:13)
[2021-01-27] MEDS: FLUTICASONE/SALMETEROL 250-50 DISKUS 14 DOSE INH SCH ×2 (09:14→22:51)
[2021-01-27] MEDS: ENOXAPARIN 40 MG/0.4 ML SYRINGE SUBCUT SCH (11:48)
[2021-01-27] MEDS: oxyCODONE/ACETAMINOPHEN 5-325 MG TABLET PO PRN (11:49)
[2021-01-27] MEDS: MONTELUKAST 10 MG TABLET PO SCH (21:34)
[2021-01-27] MEDS: SIMVASTATIN 40 MG TABLET PO SCH (21:34)
[2021-01-27] MEDS: diphenhydrAMINE CAP 25 MG CAPSULE PO PRN (21:34)
[2021-01-28] MEDS: HYDROmorphone 2 MG/1 ML VIAL IV PRN ×2 (05:46→21:54)
[2021-01-28 06:53] LABS: Basophils % 0.8 % (0.0-0.8); Eosinophils # 0.1 10*3/uL (0.0-0.87); Eosinophils % 2.3 % (0.00-10.9); Hematocrit 30.6 VOL% (42.0-52.0); Hemoglobin 9.6 GM/DL (14.0-18.0); Immature Granulocytes % 0.6 %; Immature Granulocytes Absolute 0.03 #; Lymphocytes # 1.3 10*3/uL (1.4-4.0); Lymphocytes % 24.8 % (21.2-54.2); Mean Corpuscular HGB Conc 31.4 GM/DL (32-36); Mean Corpuscular Volume 88.4 FL (87-102); Mean Platelet Volume 9.1 FL (9.6-12.0); Monocytes % 10.3 % (1.7-12.7); Neutrophils % 61.2 % (38.7-73.9); Platelet Count 401 T/CUMM (130-400); Red Blood Count 3.46 MC/CUMM (3.8-5.5); Red Cell Distribution Width 16.7 % (9.3-17.3); White Blood Count 5.2 T/CUMM (4-12)
[2021-01-28] MEDS: oxyCODONE/ACETAMINOPHEN 5-325 MG TABLET PO PRN ×3 (08:21→20:38)
[2021-01-28] MEDS: CHOLECALCIFEROL 1,000 UNIT TABLET PO SCH (08:21)
[2021-01-28] MEDS: PANTOPRAZOLE 40 MG TABLET PO SCH (08:21)
[2021-01-28] MEDS: GABAPENTIN 100 MG CAPSULE PO SCH (08:22)
[2021-01-28] MEDS: ASCORBIC ACID 500 MG TABLET PO SCH (08:22)
[2021-01-28] MEDS: COENZYME Q10 100 MG CAPSULE PO SCH (08:22)
[2021-01-28] MEDS: FLUTICASONE/SALMETEROL 250-50 DISKUS 14 DOSE INH SCH ×2 (08:24→21:22)
[2021-01-28] MEDS: SODIUM HYPOCHLORITE 0.25% IRRIG 473 ML BOTTLE TOP SCH (08:24)
[2021-01-28] MEDS: ENOXAPARIN 40 MG/0.4 ML SYRINGE SUBCUT SCH (10:38)
[2021-01-28] MEDS: diphenhydrAMINE CAP 25 MG CAPSULE PO PRN ×2 (10:58→21:54)
[2021-01-28] MEDS: SIMVASTATIN 40 MG TABLET PO SCH (21:52)
[2021-01-28] MEDS: ALPRAZolam 0.25 MG TABLET PO PRN (21:53)
[2021-01-28] MEDS: MONTELUKAST 10 MG TABLET PO SCH (21:53)
[2021-01-29] MEDS: HYDROmorphone 2 MG/1 ML VIAL IV PRN ×6 (04:38→23:53)
[2021-01-29 07:12] LABS: Basophils % 0.8 % (0.0-0.8); Eosinophils # 0.1 10*3/uL (0.0-0.87); Eosinophils % 2.9 % (0.00-10.9); Hematocrit 31.9 VOL% (42.0-52.0); Hemoglobin 9.7 GM/DL (14.0-18.0); Immature Granulocytes % 0.5 %; Immature Granulocytes Absolute 0.02 #; Lymphocytes # 1.3 10*3/uL (1.4-4.0); Lymphocytes % 33.5 % (21.2-54.2); Mean Corpuscular HGB Conc 30.4 GM/DL (32-36); Mean Corpuscular Volume 87.9 FL (87-102); Mean Platelet Volume 9.4 FL (9.6-12.0); Monocytes % 11.8 % (1.7-12.7); Neutrophils % 50.5 % (38.7-73.9); Platelet Count 393 T/CUMM (130-400); Red Blood Count 3.63 MC/CUMM (3.8-5.5); Red Cell Distribution Width 16.4 % (9.3-17.3); White Blood Count 3.8 T/CUMM (4-12)
[2021-01-29 07:28] LABS: Calcium 9.2 MG/DL (8.5-10.1); Osmolality,Calculated 278.5 MOS/KG (273-304); Potassium 3.7 MMOL/L (3.5-5.1)
[2021-01-29 07:49] LABS: Eosinophils 3 % (0-10); Lymphocytes 29 % (20-55); Platelet Estimate Adequate; Segmented Neutrophils 59 % (50-85); Total Cells Counted 100
[2021-01-29 07:50] LABS: Hypochromasia 1+; Microcytosis 1+
[2021-01-29] MEDS ORDERED: LIDOCAINE 2% 5 ML VIAL ONE (09:31)
[2021-01-29] MEDS ORDERED: fentaNYL 100 MCG/2 ML VIAL ONE (09:31)
[2021-01-29] MEDS ORDERED: MIDAZOLAM 2 MG/2 ML VIAL ONE (09:31)
[2021-01-29] MEDS ORDERED: propofoL 200 MG/20 ML VIAL IV ONE (09:31)
[2021-01-29] MEDS ORDERED: SEVOFLURANE 1 UNIT/15 MINUTE INH ONE ×2 (09:31→10:08)
[2021-01-29] MEDS ORDERED: ONDANSETRON 4 MG/2 ML VIAL ONE ×2 (09:31→10:52)
[2021-01-29] MEDS: FLUTICASONE/SALMETEROL 250-50 DISKUS 14 DOSE INH SCH ×2 (09:37→20:53)
[2021-01-29] MEDS: COENZYME Q10 100 MG CAPSULE PO SCH (09:38)
[2021-01-29] MEDS: SODIUM HYPOCHLORITE 0.25% IRRIG 473 ML BOTTLE TOP SCH (09:38)
[2021-01-29] MEDS: PANTOPRAZOLE 40 MG TABLET PO SCH (09:39)
[2021-01-29] MEDS: CHOLECALCIFEROL 1,000 UNIT TABLET PO SCH (09:39)
[2021-01-29] MEDS: GABAPENTIN 100 MG CAPSULE PO SCH (09:39)
[2021-01-29] MEDS: ASCORBIC ACID 500 MG TABLET PO SCH (09:39)
[2021-01-29] MEDS ORDERED: ePHEDrine 50 MG/ML VIAL ONE (09:57)
[2021-01-29] MEDS ORDERED: LACTATED RINGERS 1,000 ML IV SCH (10:00)
[2021-01-29] MEDS ORDERED: HYDROmorphone 2 MG/1 ML VIAL IV PRN (10:56)
[2021-01-29] MEDS ORDERED: ONDANSETRON 4 MG/2 ML VIAL IV PRN (10:56)
[2021-01-29] MEDS: diphenhydrAMINE CAP 25 MG CAPSULE PO PRN (21:13)
[2021-01-29] MEDS: ALPRAZolam 0.25 MG TABLET PO PRN (21:13)
[2021-01-29] MEDS: SIMVASTATIN 40 MG TABLET PO SCH (21:13)
[2021-01-29] MEDS: MONTELUKAST 10 MG TABLET PO SCH (21:13)
[2021-01-30 06:05] LABS: Basophils % 0.7 % (0.0-0.8); Eosinophils # 0.1 10*3/uL (0.0-0.87); Eosinophils % 2.4 % (0.00-10.9); Hematocrit 28.9 VOL% (42.0-52.0); Hemoglobin 8.6 GM/DL (14.0-18.0); Immature Granulocytes % 0.2 %; Immature Granulocytes Absolute 0.01 #; Lymphocytes # 1.3 10*3/uL (1.4-4.0); Mean Corpuscular HGB Conc 29.8 GM/DL (32-36); Mean Corpuscular Volume 90.6 FL (87-102); Mean Platelet Volume 9.3 FL (9.6-12.0); Monocytes % 11.1 % (1.7-12.7); Neutrophils % 62.6 % (38.7-73.9); Platelet Count 395 T/CUMM (130-400); Red Blood Count 3.19 MC/CUMM (3.8-5.5); Red Cell Distribution Width 16.4 % (9.3-17.3); White Blood Count 5.5 T/CUMM (4-12)
[2021-01-30] MEDS: HYDROmorphone 2 MG/1 ML VIAL IV PRN (07:47)
[2021-01-30 08:07] LABS: Hypochromasia 1+; Microcytosis 1+
[2021-01-30 08:08] LABS: Platelet Estimate Normal
[2021-01-30] MEDS: PANTOPRAZOLE 40 MG TABLET PO SCH (09:00)
[2021-01-30] MEDS: GABAPENTIN 100 MG CAPSULE PO SCH (09:00)
[2021-01-30] MEDS: COENZYME Q10 100 MG CAPSULE PO SCH (09:00)
[2021-01-30] MEDS: ASCORBIC ACID 500 MG TABLET PO SCH (09:01)
[2021-01-30] MEDS: CHOLECALCIFEROL 1,000 UNIT TABLET PO SCH (09:01)
[2021-01-30] MEDS: oxyCODONE/ACETAMINOPHEN 5-325 MG TABLET PO PRN ×3 (09:01→22:30)
[2021-01-30] MEDS: FLUTICASONE/SALMETEROL 250-50 DISKUS 14 DOSE INH SCH ×2 (09:03→22:32)
[2021-01-30] MEDS: SODIUM HYPOCHLORITE 0.25% IRRIG 473 ML BOTTLE TOP SCH (09:03)
[2021-01-30] MEDS: SIMVASTATIN 40 MG TABLET PO SCH (22:29)
[2021-01-30] MEDS: MONTELUKAST 10 MG TABLET PO SCH (22:30)
[2021-01-31] MEDS: oxyCODONE/ACETAMINOPHEN 5-325 MG TABLET PO PRN ×4 (04:02→20:23)
[2021-01-31 05:24] LABS: Basophils # 0.1 10*3/uL (0.0-0.2); Basophils % 1.1 % (0.0-0.8); Eosinophils # 0.1 10*3/uL (0.0-0.87); Eosinophils % 2.9 % (0.00-10.9); Hematocrit 28.8 VOL% (42.0-52.0); Hemoglobin 8.8 GM/DL (14.0-18.0); Immature Granulocytes % 0.5 %; Immature Granulocytes Absolute 0.02 #; Lymphocytes # 1.4 10*3/uL (1.4-4.0); Lymphocytes % 32.7 % (21.2-54.2); Mean Corpuscular HGB Conc 30.6 GM/DL (32-36); Mean Corpuscular Volume 88.6 FL (87-102); Mean Platelet Volume 9.4 FL (9.6-12.0); Monocytes % 10.4 % (1.7-12.7); Neutrophils % 52.4 % (38.7-73.9); Platelet Count 349 T/CUMM (130-400); Red Blood Count 3.25 MC/CUMM (3.8-5.5); Red Cell Distribution Width 16.2 % (9.3-17.3); White Blood Count 4.4 T/CUMM (4-12)
[2021-01-31 05:50] LABS: Osmolality,Calculated 275.7 MOS/KG (273-304)
[2021-01-31] MEDS: GABAPENTIN 100 MG CAPSULE PO SCH (09:22)
[2021-01-31] MEDS: CHOLECALCIFEROL 1,000 UNIT TABLET PO SCH (09:22)
[2021-01-31] MEDS: COENZYME Q10 100 MG CAPSULE PO SCH (09:22)
[2021-01-31] MEDS: PANTOPRAZOLE 40 MG TABLET PO SCH (09:22)
[2021-01-31] MEDS: ASCORBIC ACID 500 MG TABLET PO SCH (09:22)
[2021-01-31] MEDS: FLUTICASONE/SALMETEROL 250-50 DISKUS 14 DOSE INH SCH ×2 (09:23→20:24)
[2021-01-31] MEDS: SODIUM HYPOCHLORITE 0.25% IRRIG 473 ML BOTTLE TOP SCH (09:23)
[2021-01-31] MEDS: SIMVASTATIN 40 MG TABLET PO SCH (20:23)
[2021-01-31] MEDS: MONTELUKAST 10 MG TABLET PO SCH (20:23)
[2021-02-01] MEDS: oxyCODONE/ACETAMINOPHEN 5-325 MG TABLET PO PRN ×5 (00:13→20:29)
[2021-02-01 06:55] LABS: Basophils # 0.1 10*3/uL (0.0-0.2); Basophils % 1.3 % (0.0-0.8); Eosinophils # 0.1 10*3/uL (0.0-0.87); Eosinophils % 2.9 % (0.00-10.9); Hematocrit 28.6 VOL% (42.0-52.0); Hemoglobin 8.8 GM/DL (14.0-18.0); Immature Granulocytes % 0.3 %; Immature Granulocytes Absolute 0.01 #; Lymphocytes # 1.2 10*3/uL (1.4-4.0); Lymphocytes % 32.2 % (21.2-54.2); Mean Corpuscular HGB Conc 30.8 GM/DL (32-36); Mean Corpuscular Volume 88.8 FL (87-102); Mean Platelet Volume 9.3 FL (9.6-12.0); Monocytes % 11.9 % (1.7-12.7); Neutrophils % 51.4 % (38.7-73.9); Platelet Count 357 T/CUMM (130-400); Red Blood Count 3.22 MC/CUMM (3.8-5.5); Red Cell Distribution Width 16.1 % (9.3-17.3); White Blood Count 3.8 T/CUMM (4-12)
[2021-02-01 08:00] LABS: Band Neutrophils 6 % (0-10); Eosinophils 5 % (0-10); Lymphocytes 35 % (20-55); Segmented Neutrophils 42 % (50-85); Total Cells Counted 100
[2021-02-01 08:01] LABS: Anisocytosis 1+; Platelet Estimate Normal
[2021-02-01] MEDS: CHOLECALCIFEROL 1,000 UNIT TABLET PO SCH (09:47)
[2021-02-01] MEDS: GABAPENTIN 100 MG CAPSULE PO SCH (09:47)
[2021-02-01] MEDS: ASCORBIC ACID 500 MG TABLET PO SCH (09:47)
[2021-02-01] MEDS: COENZYME Q10 100 MG CAPSULE PO SCH (09:47)
[2021-02-01] MEDS: PANTOPRAZOLE 40 MG TABLET PO SCH (09:47)
[2021-02-01] MEDS: FLUTICASONE/SALMETEROL 250-50 DISKUS 14 DOSE INH SCH ×2 (09:48→20:30)
[2021-02-01] MEDS: SODIUM HYPOCHLORITE 0.25% IRRIG 473 ML BOTTLE TOP SCH (09:48)
[2021-02-01] MEDS: SIMVASTATIN 40 MG TABLET PO SCH (20:28)
[2021-02-01] MEDS: MONTELUKAST 10 MG TABLET PO SCH (20:28)
[2021-02-02] MEDS: oxyCODONE/ACETAMINOPHEN 5-325 MG TABLET PO PRN ×2 (00:15→18:25)
[2021-02-02 06:06] LABS: Eosinophils # 0.1 10*3/uL (0.0-0.87); Eosinophils % 3.4 % (0.00-10.9); Hematocrit 29.5 VOL% (42.0-52.0); Hemoglobin 9.1 GM/DL (14.0-18.0); Immature Granulocytes % 0.3 %; Immature Granulocytes Absolute 0.01 #; Lymphocytes # 1.1 10*3/uL (1.4-4.0); Lymphocytes % 28.3 % (21.2-54.2); Mean Corpuscular HGB Conc 30.8 GM/DL (32-36); Mean Corpuscular Volume 88.9 FL (87-102); Mean Platelet Volume 9.4 FL (9.6-12.0); Monocytes % 14.7 % (1.7-12.7); Neutrophils % 52.3 % (38.7-73.9); Platelet Count 339 T/CUMM (130-400); Red Blood Count 3.32 MC/CUMM (3.8-5.5); Red Cell Distribution Width 16.1 % (9.3-17.3); White Blood Count 3.8 T/CUMM (4-12)
[2021-02-02 06:30] LABS: Osmolality,Calculated 277.4 MOS/KG (273-304); Potassium 4.1 MMOL/L (3.5-5.1)
[2021-02-02 06:37] LABS: Eosinophils 2 % (0-10); Hypochromasia 1+; Lymphocytes 28 % (20-55); Platelet Estimate Adequate; Segmented Neutrophils 56 % (50-85); Total Cells Counted 100
[2021-02-02 06:38] LABS: Microcytosis 1+
[2021-02-02] MEDS ORDERED: LORazepam 0.5 MG TABLET PO ONE (13:00)
[2021-02-02] MEDS: HYDROmorphone 2 MG/1 ML VIAL IV PRN ×2 (13:12→21:24)
[2021-02-02] MEDS: GABAPENTIN 100 MG CAPSULE PO SCH (16:02)
[2021-02-02] MEDS: FLUTICASONE/SALMETEROL 250-50 DISKUS 14 DOSE INH SCH ×2 (16:02→21:16)
[2021-02-02] MEDS: COENZYME Q10 100 MG CAPSULE PO SCH (16:02)
[2021-02-02] MEDS: CHOLECALCIFEROL 1,000 UNIT TABLET PO SCH (16:02)
[2021-02-02] MEDS: SODIUM HYPOCHLORITE 0.25% IRRIG 473 ML BOTTLE TOP SCH (16:02)
[2021-02-02] MEDS: PANTOPRAZOLE 40 MG TABLET PO SCH (16:02)
[2021-02-02] MEDS: ASCORBIC ACID 500 MG TABLET PO SCH (16:02)
[2021-02-02] MEDS: ALPRAZolam 0.25 MG TABLET PO PRN (21:17)
[2021-02-02] MEDS: SIMVASTATIN 40 MG TABLET PO SCH (21:17)
[2021-02-02] MEDS: diphenhydrAMINE CAP 25 MG CAPSULE PO PRN (21:17)
[2021-02-02] MEDS: MONTELUKAST 10 MG TABLET PO SCH (21:17)
[2021-02-03] MEDS: oxyCODONE/ACETAMINOPHEN 5-325 MG TABLET PO PRN ×3 (00:43→10:47)
[2021-02-03 05:45] LABS: Basophils % 1.2 % (0.0-0.8); Eosinophils # 0.1 10*3/uL (0.0-0.87); Eosinophils % 3.5 % (0.00-10.9); Hemoglobin 9.2 GM/DL (14.0-18.0); Immature Granulocytes % 0.3 %; Immature Granulocytes Absolute 0.01 #; Lymphocytes # 1.2 10*3/uL (1.4-4.0); Lymphocytes % 35.8 % (21.2-54.2); Mean Corpuscular HGB Conc 30.7 GM/DL (32-36); Mean Corpuscular Volume 88.2 FL (87-102); Mean Platelet Volume 9.5 FL (9.6-12.0); Monocytes % 19.5 % (1.7-12.7); Neutrophils % 39.7 % (38.7-73.9); Platelet Count 337 T/CUMM (130-400); Red Cell Distribution Width 16.1 % (9.3-17.3); White Blood Count 3.4 T/CUMM (4-12)
[2021-02-03 06:03] LABS: Calcium 9.2 MG/DL (8.5-10.1); Osmolality,Calculated 275.7 MOS/KG (273-304); Potassium 3.9 MMOL/L (3.5-5.1)
[2021-02-03 06:09] LABS: Eosinophils 3 % (0-10); Lymphocytes 38 % (20-55); Platelet Estimate Adequate; Segmented Neutrophils 35 % (50-85); Total Cells Counted 100
[2021-02-03 06:10] LABS: Hypochromasia 1+; Microcytosis 1+
[2021-02-03] MEDS: PANTOPRAZOLE 40 MG TABLET PO SCH (09:16)
[2021-02-03] MEDS: GABAPENTIN 100 MG CAPSULE PO SCH (09:17)
[2021-02-03] MEDS: SODIUM HYPOCHLORITE 0.25% IRRIG 473 ML BOTTLE TOP SCH (09:17)
[2021-02-03] MEDS: ASCORBIC ACID 500 MG TABLET PO SCH (09:17)
[2021-02-03] MEDS: COENZYME Q10 100 MG CAPSULE PO SCH (09:17)
[2021-02-03] MEDS: CHOLECALCIFEROL 1,000 UNIT TABLET PO SCH (09:17)
[2021-02-03 14:26] VITALS: BP 124/62
== END 2021-02-03 15:39 | disposition home health service (06) | DRG 923 ==
LOC: N.ED 13:28 → SUATTDRO 15:29 → N.EDINP 15:29 → N.4E 15:56
PROVIDERS: ADMIT Internal Medicine; ATTEND Internal Medicine

== ENCOUNTER 2021-02-15 20:34 | Inpatient (IN) ==
[2021-02-15 23:26] LABS: Basophils % 0.3 % (0.0-0.8); Eosinophils # 0.1 10*3/uL (0.0-0.87); Eosinophils % 1.7 % (0.00-10.9); Hematocrit 32.6 VOL% (42.0-52.0); Hemoglobin 9.5 GM/DL (14.0-18.0); Immature Granulocytes % 0.5 %; Immature Granulocytes Absolute 0.03 #; Lymphocytes % 14.8 % (21.2-54.2); Mean Corpuscular HGB Conc 29.1 GM/DL (32-36); Mean Corpuscular Volume 88.8 FL (87-102); Mean Platelet Volume 9.5 FL (9.6-12.0); Monocytes % 9.7 % (1.7-12.7); Platelet Count 307 T/CUMM (130-400); Red Blood Count 3.67 MC/CUMM (3.8-5.5); Red Cell Distribution Width 15.2 % (9.3-17.3); White Blood Count 6.5 T/CUMM (4-12)
[2021-02-15 23:32] LABS: Osmolality,Calculated 279.5 MOS/KG (273-304); Potassium 4.1 MMOL/L (3.5-5.1)
[2021-02-15] MEDS ORDERED: ONDANSETRON 4 MG/2 ML VIAL IV PRN (23:56)
[2021-02-15] MEDS ORDERED: ACETAMINOPHEN 325 MG TABLET PO PRN (23:56)
[2021-02-16] MEDS: LACTATED RINGERS 1,000 ML IV SCH ×2 (00:42→14:35)
[2021-02-16] MEDS ORDERED: MORPHINE 4 MG/1 ML VIAL ONE (01:53)
[2021-02-16] MEDS ORDERED: MORPHINE 4 MG/1 ML VIAL IV ONE (02:13)
[2021-02-16] MEDS: FLUTICASONE/SALMETEROL 250-50 DISKUS 14 DOSE INH SCH ×2 (09:12→21:54)
[2021-02-16] MEDS: PANTOPRAZOLE 40 MG TABLET PO SCH (09:14)
[2021-02-16] MEDS ORDERED: SODIUM HYPOCHLORITE 0.25% IRR 1 APPLIC in IV BAG 1 EACH IRRIG PRN (09:23)
[2021-02-16] MEDS: HYDROmorphone 2 MG/1 ML VIAL IV PRN ×3 (16:05→21:54)
[2021-02-16] MEDS ORDERED: SODIUM HYPOCHLORITE 0.25% IRRIG 473 ML BOTTLE TOP PRN (18:12)
[2021-02-16] MEDS: SIMVASTATIN 40 MG TABLET PO SCH (21:54)
[2021-02-17] MEDS: LACTATED RINGERS 1,000 ML IV SCH ×2 (04:49→15:28)
[2021-02-17 07:35] LABS: Immature Granulocytes % 0.5 %; Lymphocytes # 1.6 10*3/uL (1.4-4.0); Monocytes % 8.9 % (1.7-12.7); Neutrophils % 82.8 % (38.7-73.9); Platelet Count 270 T/CUMM (130-400)
[2021-02-17 07:37] LABS: Basophils % 0.2 % (0.0-0.8); Hematocrit 22.1 VOL% (42.0-52.0); Lymphocytes % 7.6 % (21.2-54.2); Mean Corpuscular HGB Conc 30.8 GM/DL (32-36); Mean Corpuscular Volume 87.7 FL (87-102); Mean Platelet Volume 9.5 FL (9.6-12.0); Red Cell Distribution Width 15.1 % (9.3-17.3)
[2021-02-17 07:38] LABS: Hemoglobin 6.8 GM/DL (14.0-18.0); Red Blood Count 2.52 MC/CUMM (3.8-5.5); White Blood Count 20.8 T/CUMM (4-12)
[2021-02-17 07:46] LABS: Hypochromasia 2+; Lymphocytes 9 % (20-55); Microcytosis 1+; Platelet Estimate Adequate; Segmented Neutrophils 84 % (50-85); Total Cells Counted 100
[2021-02-17] MEDS ORDERED: SODIUM HYPOCHLORITE 0.25% IRRIG 473 ML BOTTLE TOP SCH (09:00)
[2021-02-17] MEDS ORDERED: SODIUM CHLORIDE 0.9% 1,000 ML IV PRN (09:07)
[2021-02-17] MEDS: PANTOPRAZOLE 40 MG TABLET PO SCH (09:57)
[2021-02-17] MEDS: FLUTICASONE/SALMETEROL 250-50 DISKUS 14 DOSE INH SCH ×2 (09:57→21:03)
[2021-02-17] MEDS ORDERED: fentaNYL 100 MCG/2 ML VIAL ONE ×2 (10:41→10:43)
[2021-02-17] MEDS ORDERED: SEVOFLURANE 1 UNIT/15 MINUTE INH ONE (11:25)
[2021-02-17] MEDS ORDERED: propofoL 200 MG/20 ML VIAL IV ONE (11:25)
[2021-02-17] MEDS ORDERED: LIDOCAINE 2% 5 ML VIAL ONE (11:25)
[2021-02-17] MEDS ORDERED: PHENYLEPHRINE 1 MG/10 ML SYRINGE IV ONE (11:25)
[2021-02-17] MEDS ORDERED: SODIUM CHLORIDE 0.9% 1,000 ML IV ONE (11:26)
[2021-02-17] MEDS: HYDROmorphone 2 MG/1 ML VIAL IV PRN (20:01)
[2021-02-17] MEDS: SIMVASTATIN 40 MG TABLET PO SCH (21:42)
[2021-02-18] MEDS: HYDROmorphone 2 MG/1 ML VIAL IV PRN ×7 (03:14→22:51)
[2021-02-18 07:34] LABS: Basophils % 0.2 % (0.0-0.8); Eosinophils % 0.1 % (0.00-10.9); Hematocrit 20.7 VOL% (42.0-52.0); Hemoglobin 6.6 GM/DL (14.0-18.0); Immature Granulocytes % 0.8 %; Immature Granulocytes Absolute 0.13 #; Lymphocytes # 1.3 10*3/uL (1.4-4.0); Lymphocytes % 8.1 % (21.2-54.2); Mean Corpuscular HGB Conc 31.9 GM/DL (32-36); Mean Corpuscular Volume 87.7 FL (87-102); Mean Platelet Volume 9.5 FL (9.6-12.0); Monocytes % 6.4 % (1.7-12.7); Neutrophils % 84.4 % (38.7-73.9); Platelet Count 225 T/CUMM (130-400); Red Blood Count 2.36 MC/CUMM (3.8-5.5); Red Cell Distribution Width 14.7 % (9.3-17.3); White Blood Count 16.4 T/CUMM (4-12)
[2021-02-18 07:54] LABS: Blood Urea Nitrogen 14 MG/DL (7-18); Calcium 8.1 MG/DL (8.5-10.1); Carbon Dioxide 31 MMOL/L (21-32); Estimated Glom Filtration Rate 184 ML/MIN; Glucose 101 MG/DL (74-106); Osmolality,Calculated 273.8 MOS/KG (273-304); Potassium 3.9 MMOL/L (3.5-5.1); Sodium 137 MMOL/L (136-145)
[2021-02-18] MEDS: PANTOPRAZOLE 40 MG TABLET PO SCH (08:21)
[2021-02-18] MEDS: FLUTICASONE/SALMETEROL 250-50 DISKUS 14 DOSE INH SCH ×2 (08:22→21:38)
[2021-02-18] MEDS: LACTATED RINGERS 1,000 ML IV SCH (11:19)
[2021-02-18] MEDS ORDERED: SODIUM CHLORIDE 0.9% 1,000 ML IV PRN (12:24)
[2021-02-18 19:09] LABS: Basophils % 0.1 % (0.0-0.8); Eosinophils % 0.1 % (0.00-10.9); Hematocrit 22.5 VOL% (42.0-52.0); Hemoglobin 7.1 GM/DL (14.0-18.0); Immature Granulocytes % 0.8 %; Immature Granulocytes Absolute 0.13 #; Lymphocytes # 1.2 10*3/uL (1.4-4.0); Lymphocytes % 7.3 % (21.2-54.2); Mean Corpuscular HGB Conc 31.6 GM/DL (32-36); Mean Corpuscular Volume 87.9 FL (87-102); Mean Platelet Volume 9.6 FL (9.6-12.0); Monocytes % 6.3 % (1.7-12.7); Neutrophils % 85.4 % (38.7-73.9); Platelet Count 223 T/CUMM (130-400); Red Blood Count 2.56 MC/CUMM (3.8-5.5); Red Cell Distribution Width 14.7 % (9.3-17.3); White Blood Count 16.4 T/CUMM (4-12)
[2021-02-18] MEDS: SIMVASTATIN 40 MG TABLET PO SCH (21:17)
[2021-02-19] MEDS: HYDROmorphone 2 MG/1 ML VIAL IV PRN ×10 (00:48→19:02)
[2021-02-19 02:37] LABS: Hematocrit 24.9 VOL% (42.0-52.0); Hemoglobin 7.8 GM/DL (14.0-18.0)
[2021-02-19 05:05] LABS: Basophils % 0.2 % (0.0-0.8); Eosinophils % 0.2 % (0.00-10.9); Hematocrit 24.6 VOL% (42.0-52.0); Hemoglobin 7.9 GM/DL (14.0-18.0); Immature Granulocytes % 1.1 %; Immature Granulocytes Absolute 0.14 #; Lymphocytes # 1.3 10*3/uL (1.4-4.0); Lymphocytes % 9.6 % (21.2-54.2); Mean Corpuscular HGB Conc 32.1 GM/DL (32-36); Mean Corpuscular Volume 86.6 FL (87-102); Mean Platelet Volume 9.5 FL (9.6-12.0); Neutrophils % 81.9 % (38.7-73.9); Platelet Count 221 T/CUMM (130-400); Red Blood Count 2.84 MC/CUMM (3.8-5.5); Red Cell Distribution Width 14.9 % (9.3-17.3); White Blood Count 13.2 T/CUMM (4-12)
[2021-02-19 05:54] LABS: Calcium 8.3 MG/DL (8.5-10.1); Osmolality,Calculated 266.2 MOS/KG (273-304); Potassium 4.2 MMOL/L (3.5-5.1)
[2021-02-19] MEDS: LACTATED RINGERS 1,000 ML IV SCH ×3 (06:51→14:06)
[2021-02-19] MEDS ORDERED: BUPIVACAINE MPF 0.25% 30 ML VIAL ONE (08:30)
[2021-02-19] MEDS ORDERED: LIDOCAINE 1%/EPI INJ 20 ML VIAL ONE (08:30)
[2021-02-19] MEDS ORDERED: ETOMIDATE 40 MG/20 ML VIAL IV ONE ×2 (08:54)
[2021-02-19] MEDS ORDERED: SEVOFLURANE 1 UNIT/15 MINUTE INH ONE (08:54)
[2021-02-19] MEDS ORDERED: LIDOCAINE 2% 5 ML VIAL ONE ×2 (08:54→09:19)
[2021-02-19] MEDS ORDERED: ONDANSETRON 4 MG/2 ML VIAL ONE (08:54)
[2021-02-19] MEDS ORDERED: fentaNYL 100 MCG/2 ML VIAL ONE (08:54)
[2021-02-19] MEDS ORDERED: propofoL 200 MG/20 ML VIAL IV ONE (08:54)
[2021-02-19] MEDS ORDERED: PHENYLEPHRINE 10 MG/1 ML VIAL IV ONE (09:15)
[2021-02-19] MEDS: PANTOPRAZOLE 40 MG TABLET PO SCH (11:45)
[2021-02-19] MEDS: FLUTICASONE/SALMETEROL 250-50 DISKUS 14 DOSE INH SCH ×2 (11:49→21:06)
[2021-02-19] MEDS ORDERED: SODIUM CHLORIDE 0.9% 1,000 ML IV PRN (14:46)
[2021-02-19] MEDS: SIMVASTATIN 40 MG TABLET PO SCH (21:05)
[2021-02-20] MEDS: HYDROmorphone 2 MG/1 ML VIAL IV PRN ×10 (00:59→23:42)
[2021-02-20 01:02] LABS: Basophils % 0.2 % (0.0-0.8); Eosinophils % 0.5 % (0.00-10.9); Hemoglobin 8.5 GM/DL (14.0-18.0); Immature Granulocytes % 0.7 %; Immature Granulocytes Absolute 0.06 #; Lymphocytes # 0.7 10*3/uL (1.4-4.0); Lymphocytes % 7.8 % (21.2-54.2); Mean Corpuscular HGB Conc 32.7 GM/DL (32-36); Mean Corpuscular Volume 87.2 FL (87-102); Mean Platelet Volume 9.2 FL (9.6-12.0); Monocytes % 7.2 % (1.7-12.7); Neutrophils % 83.6 % (38.7-73.9); Platelet Count 219 T/CUMM (130-400); Red Blood Count 2.98 MC/CUMM (3.8-5.5); White Blood Count 8.7 T/CUMM (4-12)
[2021-02-20] MEDS: LACTATED RINGERS 1,000 ML IV SCH (03:04)
[2021-02-20 06:02] LABS: Basophils % 0.1 % (0.0-0.8); Eosinophils % 0.3 % (0.00-10.9); Hematocrit 25.5 VOL% (42.0-52.0); Immature Granulocytes % 0.7 %; Immature Granulocytes Absolute 0.07 #; Lymphocytes # 0.9 10*3/uL (1.4-4.0); Lymphocytes % 9.1 % (21.2-54.2); Mean Corpuscular HGB Conc 31.4 GM/DL (32-36); Mean Corpuscular Volume 88.2 FL (87-102); Mean Platelet Volume 9.9 FL (9.6-12.0); Monocytes % 7.4 % (1.7-12.7); Neutrophils % 82.4 % (38.7-73.9); Platelet Count 238 T/CUMM (130-400); Red Blood Count 2.89 MC/CUMM (3.8-5.5); Red Cell Distribution Width 15.1 % (9.3-17.3); White Blood Count 9.9 T/CUMM (4-12)
[2021-02-20 06:16] LABS: Osmolality,Calculated 270.1 MOS/KG (273-304); Potassium 4.1 MMOL/L (3.5-5.1)
[2021-02-20] MEDS ORDERED: LIDOCAINE 2% TOP JELLY 5 ML TUBE TOP ONE (07:30)
[2021-02-20] MEDS ORDERED: LIDOCAINE 2% TOP JELLY 20 ML VIAL INTRAURETH ONE (07:44)
[2021-02-20] MEDS: PANTOPRAZOLE 40 MG TABLET PO SCH (09:26)
[2021-02-20] MEDS: FLUTICASONE/SALMETEROL 250-50 DISKUS 14 DOSE INH SCH ×2 (09:26→20:52)
[2021-02-20] MEDS: SIMVASTATIN 40 MG TABLET PO SCH (20:51)
[2021-02-21] MEDS: HYDROmorphone 2 MG/1 ML VIAL IV PRN ×6 (01:50→18:50)
[2021-02-21 04:41] LABS: Basophils % 0.2 % (0.0-0.8); Eosinophils # 0.1 10*3/uL (0.0-0.87); Eosinophils % 0.6 % (0.00-10.9); Hematocrit 25.1 VOL% (42.0-52.0); Immature Granulocytes % 0.8 %; Lymphocytes # 1.2 10*3/uL (1.4-4.0); Lymphocytes % 9.1 % (21.2-54.2); Mean Corpuscular HGB Conc 31.9 GM/DL (32-36); Mean Corpuscular Volume 87.8 FL (87-102); Mean Platelet Volume 9.8 FL (9.6-12.0); Monocytes % 7.6 % (1.7-12.7); NRBC # 0.02 10*3/uL; Neutrophils % 81.7 % (38.7-73.9); Platelet Count 304 T/CUMM (130-400); Red Blood Count 2.86 MC/CUMM (3.8-5.5); Red Cell Distribution Width 14.9 % (9.3-17.3); White Blood Count 12.7 T/CUMM (4-12)
[2021-02-21 05:02] LABS: Hypochromasia 1+; Microcytosis 1+
[2021-02-21 05:03] LABS: Calcium 8.5 MG/DL (8.5-10.1); Osmolality,Calculated 266.4 MOS/KG (273-304); Platelet Estimate Adequate; Potassium 4.2 MMOL/L (3.5-5.1)
[2021-02-21] MEDS ORDERED: NALOXONE 0.4 MG/ML VIAL ONE (07:18)
[2021-02-21 09:09] LABS: INR 1.2; PT Patient Result 13.1 SECS (10.5-12.0); Partial Thromboplastin Time 29.1 SECS (23.9-33.8)
[2021-02-21] MEDS: FLUTICASONE/SALMETEROL 250-50 DISKUS 14 DOSE INH SCH (09:24)
[2021-02-21] MEDS: PANTOPRAZOLE 40 MG TABLET PO SCH (09:24)
[2021-02-21 12:04] VITALS: BP 76/48
[2021-02-21] MEDS: LORazepam 2 MG/1 ML VIAL IV PRN ×2 (12:25→19:43)
== END 2021-02-21 19:57 | disposition expired | DRG 988 ==
LOC: N.ED 20:34 → N.EDINP 20:34 → N.4E 02-16 02:21
PROVIDERS: ADMIT Surgery; ATTEND Surgery